=== PATIENT | female | born 1980 | race Caucasian/White ===

== ENCOUNTER 2017-11-27 09:38 | Inpatient (IN) | payer BC ==
[2017-11-27] MEDS ORDERED: Water For Irrigation,Sterile 1,000 ML Container IRR PRN (10:59)
[2017-11-27] MEDS ORDERED: Lidocaine 1% 50 ML MDV INJECT PRN (10:59)
[2017-11-27] MEDS ORDERED: Butorphanol 1 MG/ML SDV IVPUSH PRN (10:59)
[2017-11-27] MEDS ORDERED: Carboprost Tromethamine 250 MCG/1 ML Amp IM PRN (10:59)
[2017-11-27] MEDS ORDERED: Methylergonovine 0.2 MG/1 ML Amp IM PRN (10:59)
[2017-11-27] MEDS ORDERED: Tranexamic Acid 1,000 MG in Sodium Chloride 0.9% 100 ML IV PRN (10:59)
[2017-11-27] MEDS ORDERED: Misoprostol 200 MCG Tab PO PRN (10:59)
[2017-11-27] MEDS ORDERED: Sodium Chloride 0.9% 10 ML Syringe FLUSH PRN (10:59)
[2017-11-27] MEDS ORDERED: Ampicillin 2 GM in Sodium Chloride 0.9% 100 ML IV ONE (10:59)
[2017-11-27] MEDS ORDERED: Sodium Chloride 0.9% 2.5 ML Syringe FLUSH PRN (10:59)
[2017-11-27] MEDS ORDERED: Nalbuphine 10 MG/1 ML Vial IVPUSH PRN (10:59)
[2017-11-27] MEDS ORDERED: Terbutaline 1 MG/ML SDV SUBCUT PRN (11:03)
[2017-11-27] MEDS ORDERED: Misoprostol 25 MCG (1/4 of 100 MCG) Tab VAG SCH (11:15)
[2017-11-27] MEDS ORDERED: Oxytocin/0.9 % Sodium Chloride 30 UNIT/500 ML BAG IV SCH (11:15)
[2017-11-27] MEDS: Lactated Ringers 1,000 ML IV SCH ×2 (11:42→23:06)
[2017-11-27] MEDS: Misoprostol 25 MCG (1/4 of 100 MCG) Tab VAG PRN ×2 (15:33→21:30)
[2017-11-27] MEDS: Ampicillin 1 GM in Sodium Chloride 0.9% 50 ML IV SCH ×2 (17:00→21:30)
--- NOTE | 2017-11-27 20:11 | PCM.PREANE ---
Preanesthetic Assessment - Anesthesia/Transfusion/Family Hx Anesthesia History: Prior Anesthesia Without Reaction Other Type of Anesthesia Reaction Comment: nausea and vomiting Transfusion History: Prior Transfusion Without Reaction - Review of Systems General: No Symptoms Pulmonary: No Symptoms Cardiovascular: No Symptoms Gastrointestinal: No Symptoms Neurological: No Symptoms Other: Reports: None - Physical Assessment Height: 5 ft 4.17 in Weight: 88.541 kg ASA Class: 2 Mental Status: Alert & Oriented x3 Airway Class: Mallampati = 2 Dentition: Reports: Normal Dentition Thyro-Mental Finger Breadths: 3 Mouth Opening Finger Breadths: 3 ROM/Head Extension: Full Lungs: Clear to Auscultation, Normal Respiratory Effort Cardiovascular: Regular Rate, Regular Rhythm - Lab Values: Laboratory Last Values WBC 6.76 K/uL (4.0-11.0) 11/27/17 11:17 RBC 3.75 M/uL (4.30-5.90) L 11/27/17 11:17 Hgb 12.0 g/dL (12.0-16.0) 11/27/17 11:17 Hct 35.8 % (36.0-46.0) L 11/27/17 11:17 MCV 95.5 fL (80.0-98.0) 11/27/17 11:17 MCH 32.0 pg (27.0-32.0) 11/27/17 11:17 MCHC 33.5 g/dL (31.0-37.0) 11/27/17 11:17 RDW Std Deviation 50.9 fl (28.0-62.0) 11/27/17 11:17 RDW Coeff of [place] 15 % (11.0-15.0) 11/27/17 11:17 Plt Count 111 K/uL (150-400) L 11/27/17 11:17 MPV 12.70 fL (7.40-12.00) H 11/27/17 11:17 Nucleated RBC % 0.3 /100WBC 11/27/17 11:17 Nucleated RBCs # 0 K/uL 11/27/17 11:17 Urine Color YELLOW 11/27/17 13:00 Urine Appearance CLEAR 11/27/17 13:00 Urine pH 7.0 (5.0-8.0) 11/27/17 13:00 Ur Specific [place] 1.020 (1.001-1.035) 11/27/17 13:00 Urine Protein NEGATIVE mg/dL (NEGATIVE) 11/27/17 13:00 Urine Glucose (UA) NEGATIVE mg/dL (NEGATIVE) 11/27/17 13:00 Urine Ketones NEGATIVE mg/dL (NEGATIVE) 11/27/17 13:00 Urine Occult Blood NEGATIVE (NEGATIVE) 11/27/17 13:00 Urine Nitrite NEGATIVE (NEGATIVE) 11/27/17 13:00 Urine Bilirubin NEGATIVE (NEGATIVE) 11/27/17 13:00 Urine Urobilinogen 0.2 EU/dL (<2.0) 11/27/17 13:00 Ur Leukocyte Esterase NEGATIVE (NEGATIVE) 11/27/17 13:00 Blood Type O POSITIVE 11/27/17 11:17 Antibody Screen NEGATIVE 11/27/17 11:17 - Allergies Allergies/Adverse Reactions: Allergies Allergy/AdvReac Type Severity Reaction Status Date / Time Penicillins Allergy Rash Verified 10/31/17 17:47 - Acknowledgements Anesthesia Type Planned: Epidural Pt an Appropriate Candidate for the Planned Anesthesia: Yes Alternatives and Risks of Anesthesia Discussed w Pt/Guardian: Yes Pt/Guardian Understands and Agrees with Anesthesia Plan: Yes PreAnesthesia Questionnaire HEENT History: Reports: None Cardiovascular History: Reports: None Respiratory History: Reports: None Gastrointestinal History: Reports: GERD Genitourinary History: Reports: None VOLUNTEER COORDINATOR History: Reports: Ectopic , : 6 Para: 0 LMP (Approximate): Other OB/BYN History: IVF x 2 Musculoskeletal History: Reports: None Neurological History: Reports: None Psychiatric History: Reports: Anxiety Endocrine/Metabolic History: Reports: Obesity/BMI 30+ Other Hematologic History: blood transfusion following ectopic Immunologic History: Reports: None Oncologic (Cancer) History: Reports: None Other Dermatologic History: hx I&D for leg trauma - Infectious Disease History Infectious Disease History: Reports: Chicken Pox - Past Surgical History HEENT Surgical History: Reports: Adenoidectomy, Tonsillectomy GI Surgical History: Reports: None, Hernia, Inguinal Female Surgical History: Reports: D&C, Salpingo-Oophorectomy (Rt Side) Musculoskeletal Surgical History: Reports: 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) - SUBSTANCE USE Smoking Status *Q: Never Smoker Tobacco Use Within Last Twelve Months: No Recreational Drug Use History: No - HOME MEDS Home Medications: Home Meds PNV95/Ferrous Fumarate/FA [ Multivitamins] 1 tab PO DAILY 02/15/15 [ History] Aspirin 81 mg PO DAILY 10/31/17 [History] Docusate Sodium [Colace] 100 mg PO BID 10/31/17 [History] - CURRENT (IN HOUSE) MEDS Current Meds: Current Medications Butorphanol Tartrate (Stadol) 1 mg IVPUSH Q1H PRN PRN Reason: Pain Carboprost Tromethamine (Hemabate Ds) 250 mcg IM ASDIRECTED PRN PRN Reason: Post Hemorrhage Lactated Ringer's (Ringers, Lactated) 1,000 mls @ 150 mls/hr IV ASDIRECTED [facility] Last Admin: 11/27/17 11:42 Dose: 150 mls/hr Tranexamic Acid 1,000 mg/ (Sodium Chloride) 110 mls @ 660 mls/hr IV ONETIME PRN PRN Reason: Bleeding Oxytocin/Sodium Chloride (Oxytocin 30 Unit/500 Ml-Ns) 30 unit in 500 mls @ 2 mls/hr IV TITRATE FRANKIE; Protocol Ampicillin Sodium 1 gm/ Sodium (Chloride) 50 mls @ 100 mls/hr IV Q4H [facility] Last Admin: 11/27/17 17:00 Dose: 100 mls/hr Lidocaine HCl (Xylocaine 1%) 50 ml INJECT .ONCE PRN PRN Reason: Laceration repair Methylergonovine Maleate (Methergine) 0.2 mg IM ASDIRECTED PRN PRN Reason: Post Hemorrhage Misoprostol (Cytotec) 200 mcg PO .ONCE PRN PRN Reason: Post Hemorrhage Misoprostol (Cytotec) 25 mcg VAG .ONCE FRANKIE Last Admin: 11/27/17 11:32 Dose: 25 mcg Misoprostol (Cytotec) 25 mcg VAG Q4H PRN PRN Reason: Cervical Ripening Last Admin: 11/27/17 15:33 Dose: 25 mcg Nalbuphine HCl (Nubain) 10 mg IVPUSH Q1H PRN PRN Reason: Pain (severe 7-10) Sodium Chloride (Saline Flush) 10 ml FLUSH ASDIRECTED PRN PRN Reason: Keep Vein Open Sodium Chloride (Saline Flush) 2.5 ml FLUSH ASDIRECTED PRN PRN Reason: Keep Vein Open Sterile Water (Sterile Water For Irrigation) 1,000 ml IRR ASDIRECTED PRN PRN Reason: delivery Terbutaline Sulfate (Brethine) 0.25 mg SUBCUT ASDIRECTED PRN PRN Reason: Tacysystole Discontinued Medications Ampicillin Sodium 2 gm/ Sodium (Chloride) 100 mls @ 200 mls/hr IV ONETIME ONE Stop: 11/27/17 11:28 Last Admin: 11/27/17 11:39 Dose: 200 mls/hr
[2017-11-27] MEDS: Ondansetron 4 MG/2 ML SDV IVPUSH PRN (23:06)
[2017-11-28] MEDS: Ampicillin 1 GM in Sodium Chloride 0.9% 50 ML IV SCH ×5 (01:31→17:20)
[2017-11-28] MEDS: Ondansetron 4 MG/2 ML SDV IVPUSH PRN (05:21)
[2017-11-28] MEDS: Lactated Ringers 1,000 ML IV SCH ×3 (05:21→18:40)
[2017-11-28] MEDS ORDERED: Bupivacaine 0.5% 10 ML SDV ONE ×2 (08:09→11:46)
[2017-11-28] MEDS ORDERED: Promethazine 25 MG/ML SDV IM PRN (08:18)
[2017-11-28] MEDS: Citric Acid/Sodium Citrate Solution 30 ML Cup PO ONE ×2 (09:05→19:28)
[2017-11-28] MEDS ORDERED: Ropivacaine 0.2% 2 MG/ML 20 ML SDV ONE (13:21)
[2017-11-28] MEDS ORDERED: fentaNYL 100 MCG/2 ML SDV ONE ×3 (13:21→19:23)
--- NOTE | 2017-11-28 15:27 | PCM.PRNOTE ---
- Free Text/Narrative Note: Anes Note Patient reports incomplete analgesia. Patient reports 7 out of 10 pain in the perineum, and last vaginal check was uncomfortable. Patient has delivered a SHERIFF'S OFFICER bolus using her epidural. Christian Truong CRNA
[2017-11-28] MEDS ORDERED: Bupivacaine 0.25% 10 ML SDV ONE (16:19)
--- NOTE | 2017-11-28 16:44 | PCM.PRNOTE ---
- Free Text/Narrative Note: Anes Note Patient reports loss of all anesthesia. Epidural cather removed easily and complete. Epidural replaced with new catheter. Bet prep X 3. Sterile Drape applied. Level L2-L3. Midline approach. Local 1% lido. Epidural space easily achieved using JOSE ARMANDO technique. Cath threaded 4 cm with ease. Sterile dressing applied. Test 3 cc 1.5% lido with epi negative. Load 10 cc 0.25% bupivicaine in slow incremental doses. Patient reports excellent analgesia. Christian Truong CRNA
[2017-11-28] MEDS ORDERED: Morphine PF 1 MG/ML Amp ONE (19:23)
[2017-11-28] MEDS ORDERED: ceFAZolin 1 GM Vial ONE (19:24)
[2017-11-28] MEDS ORDERED: Citric Acid/Sodium Citrate Solution 30 ML Cup ONE (19:27)
[2017-11-28] MEDS ORDERED: Phenylephrine/Normal Saline 100 MCG/ML 10 ML Syringe ONE (19:36)
[2017-11-28] MEDS ORDERED: Oxytocin 10 Units/1 ML SDV ONE (19:36)
[2017-11-28] MEDS ORDERED: Ondansetron 4 MG/2 ML SDV ONE (19:36)
[2017-11-28] MEDS ORDERED: Propofol 200 MG/20 ML SDV ONE (19:37)
[2017-11-28] MEDS ORDERED: Succinylcholine 200 MG/10 ML MDV ONE (20:06)
[2017-11-28] MEDS ORDERED: Bupivacaine 25%/EPINEPHrine/PF 30 ML ONE (20:14)
[2017-11-28] MEDS ORDERED: diphenhydrAMINE 50 MG/ML SDV IVPUSH PRN (20:33)
[2017-11-28] MEDS ORDERED: Lanolin 100% Cream 7 GM Tube TOP PRN (20:33)
[2017-11-28] MEDS ORDERED: Acetaminophen/oxyCODONE 325-5 MG Tab PO PRN (20:33)
[2017-11-28] MEDS ORDERED: Ondansetron 4 MG/2 ML SDV IVPUSH PRN (20:33)
[2017-11-28] MEDS ORDERED: Bisacodyl 10 MG Supp RECTAL PRN (20:33)
[2017-11-28] MEDS ORDERED: Simethicone 80 MG Tab.Chew PO PRN (20:33)
[2017-11-28] MEDS ORDERED: Aluminum Hydroxide/Magnesium Hydroxide/Simethicone Susp 30 ML Cup PO PRN (20:33)
--- NOTE | 2017-11-28 20:35 | PCM.OPNOTE ---
- General Post-Op/Procedure Note Date of Surgery/Procedure: 11/28/17 Operative Procedure(s): Primary LTCS Findings: viable male, apgars 8 & 9, weight: 3370 g, nuchal cord x 1 reduced, delivery of intact 3V cord & placenta. Pre Op Diagnosis: 39/1 weeks IUP. IOL for polyhydramnios, AMA. Arrest of dilation Post-Op Diagnosis: same Anesthesia Technique: Epidural, General ET Tube Primary Surgeon: Mariela Rowell Information Manager: Citlali Ibarra Fluid Replacement, Intraop: 1,800 Output, Urine Amount: 75 EBL in mLs: 600 Complications: None known Condition: Stable Free Text/Narrative:: Dictation: [id number]
[2017-11-28] MEDS ORDERED: Lactated Ringers 1,000 ML IV SCH (20:45)
[2017-11-28] MEDS ORDERED: Naloxone 0.4 MG/ML Syringe IVPUSH PRN (20:50)
[2017-11-28] MEDS ORDERED: Nalbuphine 10 MG/1 ML Vial IVPUSH PRN (20:50)
--- NOTE | 2017-11-28 20:57 | PCM.POSTAN ---
POST ANESTHESIA ASSESSMENT - MENTAL STATUS Mental Status: Alert, Oriented - VITAL SIGNS Pulse Rate: 94 SaO2: 97 Resp Rate: 19 Blood Pressure: 123/66 Temperature: 98.4 F - RESPIRATORY Respiratory Status: Respiratory Rate WNL, Airway Patent, O2 Saturation Stable - CARDIOVASCULAR CV Status: Pulse Rate WNL, Blood Pressure Stable - GASTROINTESTINAL GI Status: No Symptoms - POST OP HYDRATION Hydration Status: Adequate & Stable - OBSERVATIONS Free Text/Narrative:: Sleeping when no activity or touch. Vitals strong and pain absent. She understands son is in good condition.
[2017-11-28] MEDS: Ketorolac 30 MG/ML SDV IVPUSH SCH (21:58)
--- NOTE | 2017-11-29 00:23 | OR ---
SURGEON: Mariela Rowell M.D. DATE OF PROCEDURE: 11/28/2017 PREOPERATIVE DIAGNOSES: 1. A 39 and 1 weeks intrauterine . 2. Induction of labor for polyhydramnios, advanced maternal age. 3. Arrest of dilation. POSTOPERATIVE DIAGNOSES: 1. A 39 and 1 weeks intrauterine . 2. Induction of labor for polyhydramnios, advanced maternal age. 3. Arrest of dilation. PROCEDURES PERFORMED: Primary low transverse section via Pfannenstiel skin incision. ANESTHESIA: Epidural with general endotracheal anesthesia. GRANULATING MACHINE OPERATOR: VICKEY Summers. ESTIMATED BLOOD LOSS: 600 mL. FLUID: 800 mL crystalloid in OR. URINE OUTPUT: 75 mL. COMPLICATIONS: None. FINDINGS: Term male, scores 8 at 1 minute, 9 at 5 minutes. Weight of 3370 g, intact placenta, three-vessel cord. Nuchal cord x1 reduced manually. Clear amniotic fluid. Normal-appearing pelvis. DISPOSITION: Infant to nursery, mom in PACU, stable. PROCEDURE IN DETAIL: Elsy is a 37-year-old, G6, P0-0-5-0 at 39 and 1 weeks gestational age, who presented yesterday for scheduled induction of labor, due to term gestation, polyhydramnios, and advanced maternal age. The patient underwent Cytotec dosing and had nice cervical change with this from 1 cm thick to 3 cm, 70% by the following day. She had spontaneous rupture of membranes at approximately 7:00 a.m. on the morning of 11/28/2017 with clear fluid. She had been receiving ampicillin prophylaxis for group B beta strep positive status since she presented and was admitted the day before. The patient became increasingly uncomfortable and underwent regional anesthesia in the form of epidural. This worked satisfactorily initially but began having discomfort and difficulty with pain control in the morning hours. She had re- boluses and re-dosing, repositioning performed. Ultimately underwent another epidural shortly after 1:00 p.m. She once again became comfortable. heart tones remained in the 130s with variability. Occasional variable. The patient now made cervical change to approximately 5 to 6 cm dilatation, 80% effaced, -2 station. Throughout the afternoon, however, the patient began having increasing discomfort even with the second epidural in place. Ultimately, she actually underwent a third epidural placement at approximately 4:30 p.m. Once again became comfortable for short interval and then became increasingly uncomfortable, pain of 9/10. She was no longer able to tolerate Pitocin. This was discontinued, and with observation, she made no further cervical change from 6 cm dilatation. Options at this juncture discussed extensively with Elsy and her family. She is not having good results from regional anesthesia. She really is not willing to undergo labor efforts and delivery without regional anesthesia. She would like to proceed with a at this juncture. She has not made any cervical change throughout the afternoon. Discussed the case with Anesthesia. Think it is most prudent to undergo general anesthesia given the multiple regional anesthesia that have not been effective for her pain control. They are in agreement with this. The patient did receive a dose of terbutaline and Stadol to help with her pain control prior to going to . The risks of the have been discussed with her. Proper consent obtained. The patient was taken to the operating room, where she was placed in the dorsal supine position with leftward tilt. SCDs to the lower extremities. [place] to gravity. She was prepped and draped in the usual sterile fashion and received Ancef 2 g prophylactically. Once the pediatric team was in place, the OR crew was ready. The patient underwent general anesthesia with intubation. At this juncture, created a Pfannenstiel skin incision, carried down to the level of the rectus fascia, which was incised in midline, lateralized on either side sharply and bluntly. The superior aspect of fascia was tented upward, dissected sharply and bluntly from underlying muscles. In a similar fashion, this was performed with the inferior aspect of fascia. Rectus muscles were in midline, and peritoneum was entered. Rectus muscles and peritoneum were lateralized bluntly. Self-retaining retractor gently placed. Uterovesical reflection was visualized. Bladder flap was created sharply and bluntly. Bladder was mobilized away from lower uterine segment. Low transverse hysterotomy was performed. Uterine cavities were entered bluntly with the scalpel. The hysterotomy was lateralized bluntly. The clear fluid was still found to be present. The infant's head was flexed and delivered from the pelvis. The infant's head was delivered followed by anterior shoulder, posterior shoulder, and remaining body without difficulty. Nuchal cord x1 was reduced manually. The 's oropharynx and nares bulb suctioned. Actually, the infant began crying and cord clamped x2 and cut. was handed off to attending returned case inspector, Dr. Barrow. Cord arterial, cord venous, cord blood samples were obtained. The placenta was now delivered. Uterine cavity was cleared of all clot and debris. Hysterotomy repaired using 0 Vicryl in continuous locked fashion followed by a re- imbricating layer. Uterus was involuting nicely. Upon inspection of the hysterotomy, there was an area of oozing in the midline, repaired with figure-of - eight suture. Hemostasis thereafter evident. Posterior aspect of the uterus inspected. No defects or hematomas were found to be forming. The region was well irrigated and suction dried. Colonic gutters were cleared of all clot and debris, well irrigated, suction dried. The self- retaining retractor gently removed. Bladder blade was placed. Hysterotomy was once again inspected and found to be hemostatic. The bladder blade was removed. Rectus muscles reapproximated as well as peritoneum with 0 Vicryl inverted mattress suture technique. Anterior aspect of the muscle, posterior aspect of the fascia closely inspected. Any areas of oozing were cauterized. The rectus fascia was now reapproximated using 0 Vicryl in continuous running fashion beginning laterally on either side, meeting in the midline. Subcutaneous tissue was well irrigated, suction dried. Any areas of oozing were cauterized. There was an area of persistent bleeding along the fascia that was repaired with [id number] suture but thereafter was hemostatic. In order to help with postop pain control, the patient has had Duramorph bolused in her epidural and also injected 20 mL of 0.25% Marcaine with epinephrine along the incision in the fascia line. The skin edges were now reapproximated using 3 - 0 Vicryl in a Stanley needle in a subcuticular fashion and re-imbricated with 0.5 inch Steri-Strips and Mastisol. Uterus remained firm. Sponge, instrument, and needle counts were correct x3. The patient had tolerated the procedure well. She was extubated and will be taken to PACU in stable condition. Infant to nursery. JESSICA / DAREN /[id number] SHAHEED
[2017-11-29] MEDS: Acetaminophen/oxyCODONE 325-5 MG Tab PO PRN ×5 (00:51→21:12)
[2017-11-29] MEDS: Ketorolac 30 MG/ML SDV IVPUSH SCH ×4 (04:44→22:35)
--- NOTE | 2017-11-29 05:13 | PCM.PNPP ---
- General Info Date of Service: 11/29/17 Functional Status: Reports: Pain Controlled, Tolerating Diet, Ambulating - Review of Systems General: Denies: Fever Pulmonary: Reports: Cough (stable, receive zithromax earlier this week). Denies : Shortness of Breath Cardiovascular: Denies: Chest Pain, Palpitations, Lightheadedness Gastrointestinal: Reports: Flatus. Denies: Nausea Genitourinary: Denies: Flank Pain Neurological: Reports: No Symptoms Psychiatric: Reports: No Symptoms - General Info Date of Service: 11/29/17 - Patient Data Vital Signs - Most Recent: Last Vital Signs Temp 37.0 C 11/29/17 03:00 Pulse 79 11/29/17 03:00 Resp 16 11/29/17 04:00 BP 122/78 11/29/17 03:00 Pulse Ox 97 11/29/17 04:00 Weight - Most Recent: 88.541 kg I&O - Last 24 Hours: Intake & Output 11/28/17 11/28/17 11/29/17 14:59 22:59 06:59 Intake Total 4000 Output Total 270 Balance 3730 Lab Results - Last 24 Hours: Laboratory Results - last 24 hr 11/28/17 Range/Units 19:50 Cord ABG pH 7.305 (7.18-7.38) Cord ABG Base Excess -5 (-10--2) Cord VBG pH 7.331 (7.25-7.45) Cord VBG Base Excess -6 (-10--2) Med Orders - Current: Current Medications Al Hydroxide/Mg Hydroxide (Mag-Al Plus) 30 ml PO Q8H PRN PRN Reason: Heartburn Bisacodyl (Dulcolax) 10 mg RECTAL .ONCE PRN PRN Reason: Constipation Carboprost Tromethamine (Hemabate Ds) 250 mcg IM ASDIRECTED PRN PRN Reason: Post Hemorrhage Diphenhydramine HCl (Benadryl) 25 mg IVPUSH Q6H PRN PRN Reason: Itching or Nausea Docusate Sodium (Colace) 100 mg PO BID [facility] Emollient Ointment (Lansinoh Hpa) 0 gm TOP ASDIRECTED PRN PRN Reason: Sore Nipples Furosemide (Lasix) 20 mg PO DAILY [facility] Lactated Ringer's (Ringers, Lactated) 1,000 mls @ 150 mls/hr IV ASDIRECTED [facility] Last Admin: 11/28/17 18:40 Dose: 150 mls/hr Tranexamic Acid 1,000 mg/ (Sodium Chloride) 110 mls @ 660 mls/hr IV ONETIME PRN PRN Reason: Bleeding Oxytocin/Sodium Chloride (Oxytocin 30 Unit/500 Ml-Ns) 30 unit in 500 mls @ 2 mls/hr IV TITRATE [facility]; Protocol Last Titration: 11/28/17 17:26 Dose: 0 munits/min, 0 mls/hr Lactated Ringer's (Ringers, Lactated) 1,000 mls @ 125 mls/hr IV ASDIRECTED [facility] Last Admin: 11/28/17 22:02 Dose: 125 mls/hr Ibuprofen (Motrin) 800 mg PO Q8H PRN PRN Reason: mild pain or fever Ketorolac Tromethamine (Toradol) 30 mg IVPUSH Q6H [facility] Stop: 11/29/17 22:01 Last Admin: 11/29/17 04:44 Dose: 30 mg Methylergonovine Maleate (Methergine) 0.2 mg IM ASDIRECTED PRN PRN Reason: Post Hemorrhage Misoprostol (Cytotec) 200 mcg PO .ONCE PRN PRN Reason: Post Hemorrhage Nalbuphine HCl (Nubain) 10 mg IVPUSH Q3H PRN PRN Reason: Pruritis Stop: 11/29/17 20:51 Naloxone HCl (Narcan) 0.1 mg IVPUSH ONETIME PRN PRN Reason: Respiratory Depression Stop: 11/29/17 20:51 Ondansetron HCl (Zofran) 4 mg IVPUSH Q6H PRN PRN Reason: Nausea/Vomiting Last Admin: 11/28/17 05:21 Dose: 4 mg Ondansetron HCl (Zofran) 4 mg IVPUSH Q4H PRN PRN Reason: Nausea/Vomiting Oxycodone/Acetaminophen (Percocet 325-5 Mg) 1 tab PO Q4H PRN PRN Reason: Pain (moderate 4-6) Last Admin: 11/29/17 00:51 Dose: 1 tab Oxycodone/Acetaminophen (Percocet 325-5 Mg) 2 tab PO Q4H PRN PRN Reason: Pain (moderate 4-6) Promethazine HCl (Phenergan) 25 mg IM Q6H PRN PRN Reason: Nausea Last Admin: 11/28/17 08:42 Dose: 25 mg Simethicone (Simethicone) 80 mg PO Q4H PRN PRN Reason: Gas Sodium Chloride (Saline Flush) 10 ml FLUSH ASDIRECTED PRN PRN Reason: Keep Vein Open Sodium Chloride (Saline Flush) 2.5 ml FLUSH ASDIRECTED PRN PRN Reason: Keep Vein Open Terbutaline Sulfate (Brethine) 0.25 mg SUBCUT ASDIRECTED PRN PRN Reason: Tacysystole Last Admin: 11/28/17 19:14 Dose: 0.25 mg Discontinued Medications Bupivacaine HCl (Sensorcaine-Mpf 0.5%) Confirm Administered Dose 10 ml .ROUTE .STK-MED ONE Stop: 11/28/17 08:10 Bupivacaine HCl (Sensorcaine-Mpf 0.5%) Confirm Administered Dose 10 ml .ROUTE .STK-MED ONE Stop: 11/28/17 11:47 Bupivacaine HCl (Sensorcaine-Mpf 0.25%) Confirm Administered Dose 10 ml .ROUTE .STK-MED ONE Stop: 11/28/17 16:20 Butorphanol Tartrate (Stadol) 1 mg IVPUSH Q1H PRN PRN Reason: Pain Last Admin: 11/28/17 16:06 Dose: 1 mg Cefazolin Sodium (Ancef) Confirm Administered Dose 2 gm .ROUTE .STK-MED ONE Stop: 11/28/17 19:25 Citric Acid/Sodium Citrate (Bicitra Solution) 30 ml PO ONETIME ONE Stop: 11/28/17 08:49 Last Admin: 11/28/17 19:28 Dose: 30 ml Citric Acid/Sodium Citrate (Bicitra Solution) Confirm Administered Dose 30 ml .ROUTE .STK-MED ONE Stop: 11/28/17 19:28 Fentanyl (Sublimaze) Confirm Administered Dose 100 mcg .ROUTE .STK-MED ONE Stop: 11/28/17 13:22 Fentanyl (Sublimaze) Confirm Administered Dose 100 mcg .ROUTE .STK-MED ONE Stop: 11/28/17 13:38 Fentanyl (Sublimaze) Confirm Administered Dose 100 mcg .ROUTE .STK-MED ONE Stop: 11/28/17 19:24 Ampicillin Sodium 2 gm/ Sodium (Chloride) 100 mls @ 200 mls/hr IV ONETIME ONE Stop: 11/27/17 11:28 Last Admin: 11/27/17 11:39 Dose: 200 mls/hr Ampicillin Sodium 1 gm/ Sodium (Chloride) 50 mls @ 100 mls/hr IV Q4H [facility] Last Admin: 11/28/17 17:20 Dose: 100 mls/hr Fentanyl/Bupivacaine HCl (Fzmygsph-Nfbty-Of 2 Mcg/Ml-0.125%) Confirm Administered Dose 100 mls @ as directed EP .STK-MED ONE Stop: 11/27/17 22:00 Fentanyl/Bupivacaine HCl (Gtwdncvu-Udnrn-Mk 2 Mcg/Ml-0.125%) Confirm Administered Dose 100 mls @ as directed EP .STK-MED ONE Stop: 11/28/17 06:51 Fentanyl/Bupivacaine HCl (Lyfzcehn-Gptpv-Wz 2 Mcg/Ml-0.125%) Confirm Administered Dose 100 mls @ as directed EP .STK-MED ONE Stop: 11/28/17 12:01 Bupivacaine HCl/Epinephrine Bitart (Sensorc Mpf 0.25%-Epi 1:[id number]) Confirm Administered Dose 30 mls @ as directed .ROUTE .STK-MED ONE Stop: 11/28/17 20:15 Lidocaine HCl (Xylocaine 1%) 50 ml INJECT .ONCE PRN PRN Reason: Laceration repair Misoprostol (Cytotec) 25 mcg VAG .ONCE [facility] Last Admin: 11/27/17 11:32 Dose: 25 mcg Misoprostol (Cytotec) 25 mcg VAG Q4H PRN PRN Reason: Cervical Ripening Last Admin: 11/27/17 21:30 Dose: 25 mcg Morphine Sulfate (Duramorph Pf) Confirm Administered Dose 1 mg .ROUTE .STK-MED ONE Stop: 11/28/17 19:24 Nalbuphine HCl (Nubain) 10 mg IVPUSH Q1H PRN PRN Reason: Pain (severe 7-10) Ondansetron HCl (Zofran) Confirm Administered Dose 4 mg .ROUTE .STK-MED ONE Stop: 11/28/17 19:37 Oxytocin (Pitocin) Confirm Administered Dose 20 unit .ROUTE .STK-MED ONE Stop: 11/28/17 19:37 Phenylephrine HCl (Phenylephrine In Ns 100 Mcg/Ml) Confirm Administered Dose 1 mg .ROUTE .STK-MED ONE Stop: 11/28/17 19:37 Propofol (Diprivan 20 Ml) Confirm Administered Dose 200 mg .ROUTE .STK-MED ONE Stop: 11/28/17 19:38 Ropivacaine (Naropin 0.2%) Confirm Administered Dose 20 ml .ROUTE .STK-MED ONE Stop: 11/28/17 13:22 Sterile Water (Sterile Water For Irrigation) 1,000 ml IRR ASDIRECTED PRN PRN Reason: delivery Succinylcholine Chloride (Quelicin) Confirm Administered Dose 200 mg .ROUTE .STK -MED ONE Stop: 11/28/17 20:07 - Interaction Infant Disposition, : [place] in Room with Family Infant Feeding: Breastfed Infant; Nursed Well Support Person: - Recovery Exam Fundal Tone: Firm Fundal Level: At Umbilicus Fundal Placement: Midline Lochia Amount: Scant Lochia Color: Rubra/Red Bladder Status: Indwelling Catheter in Place - Exam General: Alert, Oriented Lungs: Normal Respiratory Effort Cardiovascular: Regular Rate, Regular Rhythm GI/Abdominal Exam: Normal Bowel Sounds, Soft Extremities: Pedal Edema (3+). No: Janee's Sign Skin: Warm, Dry, Intact Wound/Incisions: Dressing Dry and Intact Psy/Mental Status: Alert, Normal Affect - Problem List & Annotations (1) delivery, delivered, current hospitalization SNOMED Code(s): 243885410 Code(s): O82 - ENCOUNTER FOR DELIVERY WITHOUT INDICATION Status: Acute Current Visit: Yes - Problem List Review Problem List Initiated/Reviewed/Updated: Yes - My Orders Last 24 Hours: My Active Orders 11/28/17 08:18 Promethazine [Phenergan] 25 mg IM Q6H PRN 11/28/17 20:33 Notify Provider Intake and Out [RC] ASDIRECTED Notify Provider Vital Signs [RC] ASDIRECTED Acetaminophen/oxyCODONE [Percocet 325-5 MG] 1 tab PO Q4H PRN Acetaminophen/oxyCODONE [Percocet 325-5 MG] 2 tab PO Q4H PRN Alum Hydrox/Mag Hydrox/Simeth [Mag-Al Plus] 30 ml PO Q8H PRN Bisacodyl [Dulcolax] 10 mg RECTAL .ONCE PRN Lanolin [Lansinoh HPA] See Dose Instructions TOP ASDIRECTED PRN Ondansetron [Zofran] 4 mg IVPUSH Q4H PRN Simethicone 80 mg PO Q4H PRN diphenhydrAMINE [Benadryl] 25 mg IVPUSH Q6H PRN Abdominal Binder [OM.PC] Routine Heat Therapy [OM.PC] Routine Ice Therapy [OM.PC] Routine 11/28/17 20:34 Patient Status [ADT] Routine Ambulate [RC] PER UNIT ROUTINE Communication Order [RC] PER UNIT ROUTINE Communication Order [RC] PER UNIT ROUTINE Communication Order [RC] Per Unit Routine May Shower [RC] ASDIRECTED RT Incentive Spirometry [RC] Q2HWA Vital Signs [RC] PER UNIT ROUTINE Assess Lochia [WOMSER] Per Unit Routine Assess Uterine Involution [WOMSER] Per Unit Routine Breast Pump [WOMSER] Per Unit Routine Peripheral IV Discontinue [OM.PC] Routine Sequential Compression Device [OM.PC] Per Unit Routine 11/28/17 20:45 Lactated Ringers [Ringers, Lactated] 1,000 ml IV ASDIRECTED 11/28/17 21:00 Docusate Sodium [Colace] 100 mg PO BID 11/28/17 22:00 Ketorolac [Toradol] 30 mg IVPUSH Q6H 11/28/17 Dinner Regular Diet [DIET] 11/29/17 05:11 HEMOGLOBIN/HEMATOCRIT,HH [HEME] Routine 11/29/17 09:00 Furosemide [Lasix] 20 mg PO DAILY 11/30/17 04:00 Ibuprofen [Motrin] 800 mg PO Q8H PRN - Assessment Assessment:: POD 1 status post Primary LTCS - Plan Plan:: Doing well overall, ambulating halls. Pain is controlled. Given extensive edema will diurese today and tomorrow with oral lasix. going well overall. Continue postoperative cares. VS are stable.
[2017-11-29] MEDS: Furosemide 20 MG Tab PO SCH (08:55)
[2017-11-29] MEDS: Docusate Sodium 100 MG Cap PO SCH ×2 (08:55→21:12)
--- NOTE | 2017-11-29 10:40 | PCM48HPAN ---
Post Anesthesia Note - EVALUATION WITHIN 48HRS OF ANESTHETIC Vital Signs in Normal Range: Yes Patient Participated in Evaluation: Yes Respiratory Function Stable: Yes Airway Patent: Yes Cardiovascular Function Stable: Yes Hydration Status Stable: Yes Pain Control Satisfactory: Yes Nausea and Vomiting Control Satisfactory: Yes Mental Status Recovered: Yes Pulse Rate: 94 Resp Rate: 15 Temperature: 98.4 F Blood Pressure: 123/66 - COMMENTS/OBSERVATIONS Free Text/Narrative:: Did use percocet once overnight and at 0930 today. Happy with outcome...discussed her emotional state and the disconnect with effect of local anesthetic.
[2017-11-29] MEDS ORDERED: Furosemide 20 MG/2 ML VIAL IVPUSH ONE (20:43)
[2017-11-30] MEDS: Acetaminophen/oxyCODONE 325-5 MG Tab PO PRN ×4 (03:03→20:19)
[2017-11-30] MEDS: Ondansetron 4 MG/2 ML SDV IVPUSH PRN (07:03)
[2017-11-30] MEDS: Docusate Sodium 100 MG Cap PO SCH ×3 (08:15→20:20)
[2017-11-30] MEDS: Furosemide 20 MG Tab PO SCH (08:43)
--- NOTE | 2017-11-30 08:53 | PCM.PNPP ---
- General Info Date of Service: 11/30/17 Admission Dx/Problem (Free Text): 37 yo P1 s/p Primary LTCS PPD 2 Subjective Update: Patient seen at bedside , she complains of bilateral leg swelling , non tender. Normal lochia , She is . She was given IV lacix last night. Normal urine output noted > 30cc in 1hr Functional Status: Reports: Pain Controlled, Tolerating Diet, Ambulating, Urinating - Review of Systems General: Reports: No Symptoms HEENT: Reports: No Symptoms Pulmonary: Reports: No Symptoms Cardiovascular: Reports: No Symptoms Gastrointestinal: Reports: No Symptoms Genitourinary: Reports: No Symptoms Musculoskeletal: Reports: No Symptoms Skin: Reports: No Symptoms Neurological: Reports: No Symptoms Psychiatric: Reports: No Symptoms - General Info Date of Service: 11/30/17 - Patient Data Vital Signs - Most Recent: Last Vital Signs Temp 36.6 C 11/30/17 07:51 Pulse 91 11/30/17 07:51 Resp 15 11/30/17 07:51 BP 127/82 11/30/17 07:51 Pulse Ox 95 11/30/17 07:51 Weight - Most Recent: 92.249 kg I&O - Last 24 Hours: Intake & Output 11/29/17 11/30/17 11/30/17 22:59 06:59 14:59 Intake Total 1200 900 Output Total 2350 450 450 Balance -1150 450 -450 Med Orders - Current: Current Medications Al Hydroxide/Mg Hydroxide (Mag-Al Plus) 30 ml PO Q8H PRN PRN Reason: Heartburn Bisacodyl (Dulcolax) 10 mg RECTAL .ONCE PRN PRN Reason: Constipation Carboprost Tromethamine (Hemabate Ds) 250 mcg IM ASDIRECTED PRN PRN Reason: Post Hemorrhage Diphenhydramine HCl (Benadryl) 25 mg IVPUSH Q6H PRN PRN Reason: Itching or Nausea Docusate Sodium (Colace) 100 mg PO BID [facility] Last Admin: 11/30/17 08:43 Dose: 100 mg Emollient Ointment (Lansinoh Hpa) 0 gm TOP ASDIRECTED PRN PRN Reason: Sore Nipples Furosemide (Lasix) 20 mg PO DAILY [facility] Last Admin: 11/30/17 08:43 Dose: 20 mg Lactated Ringer's (Ringers, Lactated) 1,000 mls @ 150 mls/hr IV ASDIRECTED [facility] Last Admin: 11/28/17 18:40 Dose: 150 mls/hr Tranexamic Acid 1,000 mg/ (Sodium Chloride) 110 mls @ 660 mls/hr IV ONETIME PRN PRN Reason: Bleeding Oxytocin/Sodium Chloride (Oxytocin 30 Unit/500 Ml-Ns) 30 unit in 500 mls @ 2 mls/hr IV TITRATE [facility]; Protocol Last Titration: 11/28/17 17:26 Dose: 0 munits/min, 0 mls/hr Lactated Ringer's (Ringers, Lactated) 1,000 mls @ 125 mls/hr IV ASDIRECTED [facility] Last Admin: 11/28/17 22:02 Dose: 125 mls/hr Ibuprofen (Motrin) 800 mg PO Q8H PRN PRN Reason: mild pain or fever Methylergonovine Maleate (Methergine) 0.2 mg IM ASDIRECTED PRN PRN Reason: Post Hemorrhage Misoprostol (Cytotec) 200 mcg PO .ONCE PRN PRN Reason: Post Hemorrhage Ondansetron HCl (Zofran) 4 mg IVPUSH Q6H PRN PRN Reason: Nausea/Vomiting Last Admin: 11/30/17 07:03 Dose: 4 mg Ondansetron HCl (Zofran) 4 mg IVPUSH Q4H PRN PRN Reason: Nausea/Vomiting Oxycodone/Acetaminophen (Percocet 325-5 Mg) 1 tab PO Q4H PRN PRN Reason: Pain (moderate 4-6) Last Admin: 11/30/17 08:43 Dose: 1 tab Oxycodone/Acetaminophen (Percocet 325-5 Mg) 2 tab PO Q4H PRN PRN Reason: Pain (moderate 4-6) Promethazine HCl (Phenergan) 25 mg IM Q6H PRN PRN Reason: Nausea Last Admin: 11/28/17 08:42 Dose: 25 mg Simethicone (Simethicone) 80 mg PO Q4H PRN PRN Reason: Gas Sodium Chloride (Saline Flush) 10 ml FLUSH ASDIRECTED PRN PRN Reason: Keep Vein Open Sodium Chloride (Saline Flush) 2.5 ml FLUSH ASDIRECTED PRN PRN Reason: Keep Vein Open Terbutaline Sulfate (Brethine) 0.25 mg SUBCUT ASDIRECTED PRN PRN Reason: Tacysystole Last Admin: 11/28/17 19:14 Dose: 0.25 mg Discontinued Medications Bupivacaine HCl (Sensorcaine-Mpf 0.5%) Confirm Administered Dose 10 ml .ROUTE .STK-MED ONE Stop: 11/28/17 08:10 Bupivacaine HCl (Sensorcaine-Mpf 0.5%) Confirm Administered Dose 10 ml .ROUTE .STK-MED ONE Stop: 11/28/17 11:47 Bupivacaine HCl (Sensorcaine-Mpf 0.25%) Confirm Administered Dose 10 ml .ROUTE .STK-MED ONE Stop: 11/28/17 16:20 Butorphanol Tartrate (Stadol) 1 mg IVPUSH Q1H PRN PRN Reason: Pain Last Admin: 11/28/17 16:06 Dose: 1 mg Cefazolin Sodium (Ancef) Confirm Administered Dose 2 gm .ROUTE .STK-MED ONE Stop: 11/28/17 19:25 Citric Acid/Sodium Citrate (Bicitra Solution) 30 ml PO ONETIME ONE Stop: 11/28/17 08:49 Last Admin: 11/28/17 19:28 Dose: 30 ml Citric Acid/Sodium Citrate (Bicitra Solution) Confirm Administered Dose 30 ml .ROUTE .STK-MED ONE Stop: 11/28/17 19:28 Fentanyl (Sublimaze) Confirm Administered Dose 100 mcg .ROUTE .STK-MED ONE Stop: 11/28/17 13:22 Fentanyl (Sublimaze) Confirm Administered Dose 100 mcg .ROUTE .STK-MED ONE Stop: 11/28/17 13:38 Fentanyl (Sublimaze) Confirm Administered Dose 100 mcg .ROUTE .STK-MED ONE Stop: 11/28/17 19:24 Furosemide (Lasix) 10 mg IVPUSH NOW ONE Stop: 11/29/17 20:44 Last Admin: 11/29/17 21:16 Dose: 10 mg Ampicillin Sodium 2 gm/ Sodium (Chloride) 100 mls @ 200 mls/hr IV ONETIME ONE Stop: 11/27/17 11:28 Last Admin: 11/27/17 11:39 Dose: 200 mls/hr Ampicillin Sodium 1 gm/ Sodium (Chloride) 50 mls @ 100 mls/hr IV Q4H [facility] Last Admin: 11/28/17 17:20 Dose: 100 mls/hr Fentanyl/Bupivacaine HCl (Vztmnmlr-Fzwif-Mu 2 Mcg/Ml-0.125%) Confirm Administered Dose 100 mls @ as directed EP .STK-MED ONE Stop: 11/27/17 22:00 Fentanyl/Bupivacaine HCl (Wvilojfs-Dksdc-Nj 2 Mcg/Ml-0.125%) Confirm Administered Dose 100 mls @ as directed EP .STK-MED ONE Stop: 11/28/17 06:51 Fentanyl/Bupivacaine HCl (Xccyycdp-Boggf-Go 2 Mcg/Ml-0.125%) Confirm Administered Dose 100 mls @ as directed EP .STK-MED ONE Stop: 11/28/17 12:01 Bupivacaine HCl/Epinephrine Bitart (Sensorc Mpf 0.25%-Epi 1:[id number]) Confirm Administered Dose 30 mls @ as directed .ROUTE .STK-MED ONE Stop: 11/28/17 20:15 Ketorolac Tromethamine (Toradol) 30 mg IVPUSH Q6H [facility] Stop: 11/29/17 22:01 Last Admin: 11/29/17 22:35 Dose: 30 mg Lidocaine HCl (Xylocaine 1%) 50 ml INJECT .ONCE PRN PRN Reason: Laceration repair Misoprostol (Cytotec) 25 mcg VAG .ONCE [facility] Last Admin: 11/27/17 11:32 Dose: 25 mcg Misoprostol (Cytotec) 25 mcg VAG Q4H PRN PRN Reason: Cervical Ripening Last Admin: 11/27/17 21:30 Dose: 25 mcg Morphine Sulfate (Duramorph Pf) Confirm Administered Dose 1 mg .ROUTE .STK-MED ONE Stop: 11/28/17 19:24 Nalbuphine HCl (Nubain) 10 mg IVPUSH Q1H PRN PRN Reason: Pain (severe 7-10) Nalbuphine HCl (Nubain) 10 mg IVPUSH Q3H PRN PRN Reason: Pruritis Stop: 11/29/17 20:51 Naloxone HCl (Narcan) 0.1 mg IVPUSH ONETIME PRN PRN Reason: Respiratory Depression Stop: 11/29/17 20:51 Ondansetron HCl (Zofran) Confirm Administered Dose 4 mg .ROUTE .STK-MED ONE Stop: 11/28/17 19:37 Oxytocin (Pitocin) Confirm Administered Dose 20 unit .ROUTE .STK-MED ONE Stop: 11/28/17 19:37 Phenylephrine HCl (Phenylephrine In Ns 100 Mcg/Ml) Confirm Administered Dose 1 mg .ROUTE .STK-MED ONE Stop: 11/28/17 19:37 Propofol (Diprivan 20 Ml) Confirm Administered Dose 200 mg .ROUTE .STK-MED ONE Stop: 11/28/17 19:38 Ropivacaine (Naropin 0.2%) Confirm Administered Dose 20 ml .ROUTE .STK-MED ONE Stop: 11/28/17 13:22 Sterile Water (Sterile Water For Irrigation) 1,000 ml IRR ASDIRECTED PRN PRN Reason: delivery Succinylcholine Chloride (Quelicin) Confirm Administered Dose 200 mg .ROUTE .STK -MED ONE Stop: 11/28/17 20:07 - Infant Interaction Infant Disposition, : [place] in Room with Family Feeding: Breastfed ; Nursed Well Support Person: - Recovery Exam Fundal Tone: Firm Fundal Level: At Umbilicus Fundal Placement: Midline Lochia Amount: Scant Lochia Color: Rubra/Red Perineum Description: Intact, Minimal Bruising/Swelling Episiotomy/Laceration: None Bladder Status: Voiding Urinary Elimination: Voided - Exam General: Alert, Oriented HEENT: Pupils Equal Neck: Supple Lungs: Clear to Auscultation Cardiovascular: Regular Rate, Regular Rhythm GI/Abdominal Exam: Normal Bowel Sounds (Pfannestiel skin incision c/d/i ) Extremities: Normal Inspection Skin: Warm Wound/Incisions: Healing Well Neurological: No New Focal Deficit Psy/Mental Status: Alert, Normal Affect - Problem List & Annotations (1) delivery, delivered, current hospitalization SNOMED Code(s): 075990267 Code(s): O82 - ENCOUNTER FOR DELIVERY WITHOUT INDICATION Status: Acute Current Visit: Yes - Problem List Review Problem List Initiated/Reviewed/Updated: Yes - My Orders Last 24 Hours: My Active Orders 11/30/17 08:14 BMP [BASIC METABOLIC PANEL,BMP] [CHEM] Routine - Assessment Assessment:: POD 2 status post Primary LTCS - Plan Plan:: IV lasix 10mg today Compression stocking Elevate legs BMP Will defer discharge till tomorrow Routine care Venodynes
[2017-11-30] MEDS: Ibuprofen 800 MG Tab PO PRN ×2 (12:12→20:21)
[2017-11-30] MEDS ORDERED: Sodium Chloride 0.9% 300 ML IV SCH (14:00)
[2017-11-30 19:35] LABS: CHLORIDE,CL 111 mmol/L (98-107); SODIUM,NA 143 mmol/L (136-145)
[2017-12-01] MEDS: Acetaminophen/oxyCODONE 325-5 MG Tab PO PRN ×2 (00:27→09:35)
[2017-12-01] MEDS: Ibuprofen 800 MG Tab PO PRN (04:06)
[2017-12-01 07:32] VITALS: BP 115/89
--- NOTE | 2017-12-01 08:31 | PCM.PNPP ---
- General Info Date of Service: 12/01/17 Admission Dx/Problem (Free Text): 37 yo P1 s/p Primary LTCS P0D 3 with fluid retention improved , had elevated creatinine level,. now normal Subjective Update: Patient seen at bedside , bilateral leg swelling is improved , non tender. Normal lochia , She is . U/o yesterday was 6000ml yesterday Functional Status: Reports: Pain Controlled, Tolerating Diet, Ambulating, Urinating - Review of Systems General: Reports: No Symptoms HEENT: Reports: No Symptoms Pulmonary: Reports: No Symptoms Cardiovascular: Reports: No Symptoms Gastrointestinal: Reports: No Symptoms Genitourinary: Reports: No Symptoms Musculoskeletal: Reports: No Symptoms Skin: Reports: No Symptoms Neurological: Reports: No Symptoms Psychiatric: Reports: No Symptoms - General Info Date of Service: 12/01/17 - Patient Data Vital Signs - Most Recent: Last Vital Signs Temp 36.5 C 12/01/17 07:31 Pulse 95 12/01/17 07:31 Resp 16 12/01/17 07:31 BP 115/89 12/01/17 07:31 Pulse Ox 96 12/01/17 07:31 Weight - Most Recent: 92.249 kg I&O - Last 24 Hours: Intake & Output 11/30/17 12/01/17 12/01/17 22:59 06:59 14:59 Intake Total 300 1000 Output Total 1400 1600 Balance -1100 -600 Lab Results - Last 24 Hours: Laboratory Results - last 24 hr 11/30/17 11/30/17 11/30/17 Range/Units 10:15 10:15 19:08 Sodium 142 143 (136-145) mmol/L Potassium 4.1 4.0 (3.5-5.1) mmol/L Chloride 110 H 111 H (98-107) mmol/L Carbon Dioxide 23.5 26.8 (21.0-32.0) mmol/L BUN 18 16 (7.0-18.0) mg/dL Creatinine 1.2 H 1.0 (0.6-1.0) mg/dL Est Cr Clr Drug Dosing 55.29 66.35 mL/min Estimated GFR (MDRD) 50.3 > 60.0 ml/min Glucose 80 92 (74-106) mg/dL Calcium 7.8 L 8.2 L (8.5-10.1) mg/dL Phosphorus 4.2 4.1 (2.6-4.7) mg/dL Med Orders - Current: Current Medications Al Hydroxide/Mg Hydroxide (Mag-Al Plus) 30 ml PO Q8H PRN PRN Reason: Heartburn Bisacodyl (Dulcolax) 10 mg RECTAL .ONCE PRN PRN Reason: Constipation Carboprost Tromethamine (Hemabate Ds) 250 mcg IM ASDIRECTED PRN PRN Reason: Post Hemorrhage Diphenhydramine HCl (Benadryl) 25 mg IVPUSH Q6H PRN PRN Reason: Itching or Nausea Docusate Sodium (Colace) 100 mg PO BID [facility] Last Admin: 11/30/17 20:20 Dose: 100 mg Emollient Ointment (Lansinoh Hpa) 0 gm TOP ASDIRECTED PRN PRN Reason: Sore Nipples Furosemide (Lasix) 20 mg PO DAILY [facility] Last Admin: 11/30/17 08:43 Dose: 20 mg Lactated Ringer's (Ringers, Lactated) 1,000 mls @ 150 mls/hr IV ASDIRECTED [facility] Last Admin: 11/28/17 18:40 Dose: 150 mls/hr Tranexamic Acid 1,000 mg/ (Sodium Chloride) 110 mls @ 660 mls/hr IV ONETIME PRN PRN Reason: Bleeding Oxytocin/Sodium Chloride (Oxytocin 30 Unit/500 Ml-Ns) 30 unit in 500 mls @ 2 mls/hr IV TITRATE [facility]; Protocol Last Titration: 11/28/17 17:26 Dose: 0 munits/min, 0 mls/hr Lactated Ringer's (Ringers, Lactated) 1,000 mls @ 125 mls/hr IV ASDIRECTED [facility] Last Admin: 11/28/17 22:02 Dose: 125 mls/hr Sodium Chloride (Normal Saline) 300 mls @ 999 mls/min IV .BOLUS [facility] Last Admin: 11/30/17 14:10 Dose: 999 mls/min Ibuprofen (Motrin) 800 mg PO Q8H PRN PRN Reason: mild pain or fever Last Admin: 12/01/17 04:06 Dose: 800 mg Methylergonovine Maleate (Methergine) 0.2 mg IM ASDIRECTED PRN PRN Reason: Post Hemorrhage Misoprostol (Cytotec) 200 mcg PO .ONCE PRN PRN Reason: Post Hemorrhage Ondansetron HCl (Zofran) 4 mg IVPUSH Q6H PRN PRN Reason: Nausea/Vomiting Last Admin: 11/30/17 07:03 Dose: 4 mg Ondansetron HCl (Zofran) 4 mg IVPUSH Q4H PRN PRN Reason: Nausea/Vomiting Oxycodone/Acetaminophen (Percocet 325-5 Mg) 1 tab PO Q4H PRN PRN Reason: Pain (moderate 4-6) Last Admin: 12/01/17 00:27 Dose: 1 tab Oxycodone/Acetaminophen (Percocet 325-5 Mg) 2 tab PO Q4H PRN PRN Reason: Pain (moderate 4-6) Promethazine HCl (Phenergan) 25 mg IM Q6H PRN PRN Reason: Nausea Last Admin: 11/28/17 08:42 Dose: 25 mg Simethicone (Simethicone) 80 mg PO Q4H PRN PRN Reason: Gas Sodium Chloride (Saline Flush) 10 ml FLUSH ASDIRECTED PRN PRN Reason: Keep Vein Open Sodium Chloride (Saline Flush) 2.5 ml FLUSH ASDIRECTED PRN PRN Reason: Keep Vein Open Terbutaline Sulfate (Brethine) 0.25 mg SUBCUT ASDIRECTED PRN PRN Reason: Tacysystole Last Admin: 11/28/17 19:14 Dose: 0.25 mg Discontinued Medications Bupivacaine HCl (Sensorcaine-Mpf 0.5%) Confirm Administered Dose 10 ml .ROUTE .STK-MED ONE Stop: 11/28/17 08:10 Bupivacaine HCl (Sensorcaine-Mpf 0.5%) Confirm Administered Dose 10 ml .ROUTE .STK-MED ONE Stop: 11/28/17 11:47 Bupivacaine HCl (Sensorcaine-Mpf 0.25%) Confirm Administered Dose 10 ml .ROUTE .STK-MED ONE Stop: 11/28/17 16:20 Butorphanol Tartrate (Stadol) 1 mg IVPUSH Q1H PRN PRN Reason: Pain Last Admin: 11/28/17 16:06 Dose: 1 mg Cefazolin Sodium (Ancef) Confirm Administered Dose 2 gm .ROUTE .STK-MED ONE Stop: 11/28/17 19:25 Citric Acid/Sodium Citrate (Bicitra Solution) 30 ml PO ONETIME ONE Stop: 11/28/17 08:49 Last Admin: 11/28/17 19:28 Dose: 30 ml Citric Acid/Sodium Citrate (Bicitra Solution) Confirm Administered Dose 30 ml .ROUTE .STK-MED ONE Stop: 11/28/17 19:28 Fentanyl (Sublimaze) Confirm Administered Dose 100 mcg .ROUTE .STK-MED ONE Stop: 11/28/17 13:22 Fentanyl (Sublimaze) Confirm Administered Dose 100 mcg .ROUTE .STK-MED ONE Stop: 11/28/17 13:38 Fentanyl (Sublimaze) Confirm Administered Dose 100 mcg .ROUTE .STK-MED ONE Stop: 11/28/17 19:24 Furosemide (Lasix) 10 mg IVPUSH NOW ONE Stop: 11/29/17 20:44 Last Admin: 11/29/17 21:16 Dose: 10 mg Ampicillin Sodium 2 gm/ Sodium (Chloride) 100 mls @ 200 mls/hr IV ONETIME ONE Stop: 11/27/17 11:28 Last Admin: 11/27/17 11:39 Dose: 200 mls/hr Ampicillin Sodium 1 gm/ Sodium (Chloride) 50 mls @ 100 mls/hr IV Q4H FRANKIE Last Admin: 11/28/17 17:20 Dose: 100 mls/hr Fentanyl/Bupivacaine HCl (Aehlgpbb-Agzwv-Nn 2 Mcg/Ml-0.125%) Confirm Administered Dose 100 mls @ as directed EP .STK-MED ONE Stop: 11/27/17 22:00 Fentanyl/Bupivacaine HCl (Popoetdh-Vtxta-Fp 2 Mcg/Ml-0.125%) Confirm Administered Dose 100 mls @ as directed EP .STK-MED ONE Stop: 11/28/17 06:51 Fentanyl/Bupivacaine HCl (Txcpqqgl-Dknhl-Rv 2 Mcg/Ml-0.125%) Confirm Administered Dose 100 mls @ as directed EP .STK-MED ONE Stop: 11/28/17 12:01 Bupivacaine HCl/Epinephrine Bitart (Sensorc Mpf 0.25%-Epi 1:[id number]) Confirm Administered Dose 30 mls @ as directed .ROUTE .STK-MED ONE Stop: 11/28/17 20:15 Ketorolac Tromethamine (Toradol) 30 mg IVPUSH Q6H FRANKIE Stop: 11/29/17 22:01 Last Admin: 11/29/17 22:35 Dose: 30 mg Lidocaine HCl (Xylocaine 1%) 50 ml INJECT .ONCE PRN PRN Reason: Laceration repair Misoprostol (Cytotec) 25 mcg VAG .ONCE FRANKIE Last Admin: 11/27/17 11:32 Dose: 25 mcg Misoprostol (Cytotec) 25 mcg VAG Q4H PRN PRN Reason: Cervical Ripening Last Admin: 11/27/17 21:30 Dose: 25 mcg Morphine Sulfate (Duramorph Pf) Confirm Administered Dose 1 mg .ROUTE .STK-MED ONE Stop: 11/28/17 19:24 Nalbuphine HCl (Nubain) 10 mg IVPUSH Q1H PRN PRN Reason: Pain (severe 7-10) Nalbuphine HCl (Nubain) 10 mg IVPUSH Q3H PRN PRN Reason: Pruritis Stop: 11/29/17 20:51 Naloxone HCl (Narcan) 0.1 mg IVPUSH ONETIME PRN PRN Reason: Respiratory Depression Stop: 11/29/17 20:51 Ondansetron HCl (Zofran) Confirm Administered Dose 4 mg .ROUTE .STK-MED ONE Stop: 11/28/17 19:37 Oxytocin (Pitocin) Confirm Administered Dose 20 unit .ROUTE .STK-MED ONE Stop: 11/28/17 19:37 Phenylephrine HCl (Phenylephrine In Ns 100 Mcg/Ml) Confirm Administered Dose 1 mg .ROUTE .STK-MED ONE Stop: 11/28/17 19:37 Propofol (Diprivan 20 Ml) Confirm Administered Dose 200 mg .ROUTE .STK-MED ONE Stop: 11/28/17 19:38 Ropivacaine (Naropin 0.2%) Confirm Administered Dose 20 ml .ROUTE .STK-MED ONE Stop: 11/28/17 13:22 Sterile Water (Sterile Water For Irrigation) 1,000 ml IRR ASDIRECTED PRN PRN Reason: delivery Succinylcholine Chloride (Quelicin) Confirm Administered Dose 200 mg .ROUTE .STK -MED ONE Stop: 11/28/17 20:07 - Infant Interaction Infant Disposition, : [place] in Room with Family Feeding: Breastfed ; Nursed Well Support Person: - Recovery Exam Fundal Tone: Firm Fundal Level: At Umbilicus Fundal Placement: Midline Lochia Amount: Small Lochia Color: Rubra/Red Perineum Description: Intact, Minimal Bruising/Swelling Episiotomy/Laceration: Approximated Bladder Status: Voiding Urinary Elimination: Voided - Exam General: Alert, Oriented HEENT: Pupils Equal Neck: Supple Lungs: Clear to Auscultation, Normal Respiratory Effort Cardiovascular: Regular Rate, Regular Rhythm GI/Abdominal Exam: Normal Bowel Sounds (pfannestiel skin incision with steristrips in place c/d/i) Extremities: Normal Inspection Skin: Warm Wound/Incisions: Healing Well Neurological: No New Focal Deficit Psy/Mental Status: Alert - Problem List & Annotations (1) delivery, delivered, current hospitalization SNOMED Code(s): 199230991 Code(s): O82 - ENCOUNTER FOR DELIVERY WITHOUT INDICATION Status: Acute Current Visit: Yes - Problem List Review Problem List Initiated/Reviewed/Updated: Yes - My Orders Last 24 Hours: My Active Orders 11/30/17 08:49 DUGLAS Hose [Antiembolic Hose] [OM.PC] Routine 11/30/17 14:00 Sodium Chloride 0.9% [Normal Saline] 300 ml IV .BOLUS 12/01/17 08:00 BASIC METABOLIC PANEL,BMP [CHEM] Routine PHOSPHORUS [CHEM] Routine - Assessment Assessment:: POD 3 status post Primary LTCS, Fluid retention - Plan Plan:: Will repeat BMP this AM Will discharge home josé miguel del angel
[2017-12-01 08:51] LABS: CHLORIDE,CL 110 mmol/L (98-107); SODIUM,NA 143 mmol/L (136-145)
[2017-12-01] MEDS: Docusate Sodium 100 MG Cap PO SCH (09:35)
[2017-12-01] MEDS: Furosemide 20 MG Tab PO SCH (09:35)
== END 2017-12-01 10:45 | disposition home or self-care (01) | DRG 540 ==
LOC: MW.OBCHECK 09:38 → MW.OB 09:43 → MW.OBCHECK 10:59 → MW.OB 12:25 → OBSVTOIN 19:50 → MW.OB 11-28 19:50
PROVIDERS: ADMIT Obstetrics & Gynecology; ATTEND Obstetrics & Gynecology
PROC: 10D00Z1 Extraction of Products of Conception, Low, Open Approach (ICD-10-PCS; principal; 2017-11-27)
PROC: 4A1H7CZ Monitoring of Products of Conception, Cardiac Rate, Via Natural or Artificial Opening (ICD-10-PCS; 2017-11-27)
PROC: 3E0P7VZ Introduction of Hormone into Female Reproductive, Via Natural or Artificial Opening (ICD-10-PCS; 2017-11-27)
DX: O40.3XX0 Polyhydramnios, third trimester, not applicable or unspecified (principal); O62.1 Secondary uterine inertia; O12.04 Gestational edema, complicating childbirth; O09.523 Supervision of elderly multigravida, third trimester; Z3A.39 39 weeks gestation of pregnancy; Z37.0 Single live birth
CPT/HCPCS: 01967-QZ; 01968; 36415; 51702; 59025; 80048; 81003; 82803; 84100; 85014; 85018; 85027; 86850; 86900; 86901; A9270-GY; J0290; J0330; J0595; J0690; J1885; J2274; J2405; J2550; J2590; J2704; J2795; J3010; J3105; J7030; J7040; J7050; J7120